=== PATIENT | female | born 1960 | race African-American/Black ===

== ENCOUNTER → 2016-06-12 | Outpatient (CLI) | payer OTHER | LOC: MRI 09:19 | DX: M75.100 Unspecified rotator cuff tear or rupture of unspecified shoulder, not specified as traumatic (principal); M75.50 Bursitis of unspecified shoulder; M25.562 Pain in left knee; M17.9 Osteoarthritis of knee, unspecified; M25.462 Effusion, left knee; M71.22 Synovial cyst of popliteal space [Baker], left knee ==

== ENCOUNTER → 2017-06-29 | Outpatient (CLI) | payer OTHER | LOC: MRI 06-21 10:43 | DX: S83.511A Sprain of anterior cruciate ligament of right knee, initial encounter (principal); S83.281A Other tear of lateral meniscus, current injury, right knee, initial encounter; M48.061 Spinal stenosis, lumbar region without neurogenic claudication; M43.16 Spondylolisthesis, lumbar region; M51.26 Other intervertebral disc displacement, lumbar region; M46.86 Other specified inflammatory spondylopathies, lumbar region; M54.16 Radiculopathy, lumbar region; M25.461 Effusion, right knee; M71.21 Synovial cyst of popliteal space [Baker], right knee; M65.88 Other synovitis and tenosynovitis, other site; J42 Unspecified chronic bronchitis; I73.9 Peripheral vascular disease, unspecified; E78.5 Hyperlipidemia, unspecified; N39.0 Urinary tract infection, site not specified; W18.49XA Other slipping, tripping and stumbling without falling, initial encounter; Y93.89 Activity, other specified; Y92.89 Other specified places as the place of occurrence of the external cause; Y99.8 Other external cause status ==